=== PATIENT | female | born 1990 | race American Indian/Alaskan Native ===

== ENCOUNTER 2016-07-09 17:13 | Emergency (ER) | payer SELFPAY ==
[2016-07-09] MEDS ORDERED: MOTRIN PO ONE (23:27)
[2016-07-09 23:43] VITALS: BP 141/107
--- NOTE | 2016-07-09 23:48 | Emergency Department Report ---
ED Female HPI - General Chief complaint: Urogenital-Female Stated complaint: ALLERGIC REACTION TO LATEX Time Seen by Provider: 07/09/16 23:01 Source: patient Mode of arrival: Ambulatory Limitations: No Limitations - History of Present Illness Initial comments: This is a 26-year-old female that presents with erythema to the vaginal area. Patient stated had sexual intercourse 2 weeks ago with a latex condom and developed erythema to the area. Patient stated has a history of using latex condoms with no complications. Patient also stated has been shaving to the vaginal area 2 weeks ago. Patient denies any dysuria, polyuria, discharge, foul odor, pain that area. Patient does not seem toxic or ill in appearance. No signs of any distress noted. MD Complaint: other (erythema with papular rash in labia majora area) -: Gradual Location: labia Radiation: non-radiating Severity scale (0 -10): 0 Quality: burning Consistency: constant Worsens with: none Are you Now?: No (as per patietn) Associated Symptoms: denies other symptoms. denies: vaginal discharge, vaginal bleeding, abdominal pain, nausea/vomiting, fever/chills, headaches, loss of appetite, dysuria, hematuria, seizure, shortness of breath, syncope, weakness - Related Data Allergies Allergy/AdvReac Type Severity Reaction Status Date / Time latex Allergy Swelling Verified 07/09/16 22:39 ED Review of Systems ROS: Stated complaint: ALLERGIC REACTION TO LATEX Other details as noted in HPI Constitutional: denies: chills, fever Eyes: denies: eye pain, eye discharge, vision change ENT: denies: ear pain, throat pain Respiratory: denies: cough, shortness of breath, wheezing Cardiovascular: denies: chest pain, palpitations Endocrine: no symptoms reported Gastrointestinal: denies: abdominal pain, nausea, diarrhea Genitourinary: denies: urgency, dysuria, discharge Musculoskeletal: denies: back pain, joint swelling, arthralgia Skin: denies: rash, lesions Neurological: denies: headache, weakness, paresthesias Psychiatric: denies: anxiety, depression Hematological/Lymphatic: denies: easy bleeding, easy bruising ED Past Medical Hx - Past Medical History Previous Medical History?: No - Surgical History Past Surgical History?: Yes Additional Surgical History: hernia 2007 - Social History Smoking Status: Never Smoker Substance Use Type: Alcohol, Marijuana ED Physical Exam - General Limitations: No Limitations General appearance: alert, in no apparent distress - Head Head exam: Present: atraumatic, normocephalic - Eye Eye exam: Present: normal appearance - ENT ENT exam: Present: mucous membranes moist - Neck Neck exam: Present: normal inspection - Respiratory Respiratory exam: Present: normal lung sounds bilaterally. Absent: respiratory distress - Cardiovascular Cardiovascular Exam: Present: regular rate, normal rhythm. Absent: systolic murmur, diastolic murmur, rubs, gallop - GI/Abdominal GI/Abdominal exam: Present: soft, normal bowel sounds - Extremities Exam Extremities exam: Present: normal inspection - Back Exam Back exam: Present: normal inspection - Neurological Exam Neurological exam: Present: alert, oriented X3 - Psychiatric Psychiatric exam: Present: normal affect, normal mood - Skin Skin exam: Present: warm, dry, intact, normal color, rash, erythema. Absent: cyanosis, diaphoretic, urticaria, vesicles, petechiae, pallor, abrasion, ecchymosis - Other Other exam information: Erythema with papular rash in labia majora ED Course Vital Signs 07/09/16 07/09/16 17:42 21:53 Temperature 98.2 F Pulse Rate 87 76 Respiratory 16 18 Rate Blood Pressure 133/81 Blood Pressure 120/78 [Left] O2 Sat by Pulse 100 100 Oximetry ED Medical Decision Making - Medical Decision Making Ed course: 26 with mother presents with papular rash in labia majora 1- I instructed the patient to permit discontinue shaving hair in that area 2-I also instructed patient to follow up with her loan servicing representative in 3-5 days 3- at the time of discharge the patient wasn't toxic or ill in appearance. 4- patient agrees to discharge plan. No further questions noted by the patient. Critical care attestation.: If time is entered above; I have spent that time in minutes in the direct care of this critically ill patient, excluding procedure time. ED Disposition Clinical Impression: Pseudofolliculitis barbae Disposition: DISCHARGED TO HOME OR SELFCARE Is pt being admited?: No Does the pt Need Aspirin: No Condition: Stable Instructions: Acute Rash (ED) Additional Instructions: Please follow up with her primary care/loan servicing representative doctor in 3-5 days If symptoms worsen such as pus, fever, or chills report back to emergency room Referrals: PRIMARY CARE, [Primary Care Provider] - 3-5 Days TERI MEDINA MD [Referring] - 3-5 Days [facility] [Outside] - 3-5 Days [facility] [Outside] - 3-5 Days Forms: Work/School Release Form(ED)
[2016-07-09 23:52] LABS: Bacteria,Urine 1+ /HPF (Negative); Bilirubin,Urine NEG (Negative); Blood,Urine MOD (Negative); Ketones,Urine NEG (Negative); Leukocyte Esterase,Urine LG (Negative); Mucus,Urine 3+ /HPF; Nitrite,Urine NEG (Negative); Protein,Urine <15 mg/dL mg/dL (Negative); Urobilinogen,Urine < 2.0 mg/dL (<2.0)
== END 2016-07-10 01:39 | disposition home or self-care (01) ==
LOC: ED 17:13
DX: L73.1 Pseudofolliculitis barbae (principal); Z91.040 Latex allergy status; F12.10 Cannabis abuse, uncomplicated
CPT/HCPCS: 81001; 81025